=== PATIENT | female | born 2000 | race Two or more races ===

== ENCOUNTER → 2024-09-11 | Outpatient (CLI) | payer MEDICAID, SELFPAY ==
--- NOTE | 2024-09-11 09:00 | XR_ITS ---
Examination: Wrist, right 3 views Technique: Wrist AP, oblique, lateral 3 views Date and time of exam: September 11, 2024 at 0904 hours INDICATIONS: Wrist pain 2 years FINDINGS: No fracture or dislocation Mild bony prominence of what appears to be the hamate IMPRESSION: Consider CT scan of the wrist follow-up to confirm bony prominence of the hamate
--- NOTE | 2024-09-11 09:00 | XR_ITS ---
Examination: Hand, right 3 views Technique: Hand AP, oblique, lateral 3 views Date and time of exam: September 11, 2024 0904 hours INDICATIONS: Right hand pain 2 years with bony outgrowth on the right wrist FINDINGS: Mild juxta-articular bone demineralization No fracture Mild bony prominence of what appears to be the hamate IMPRESSION: Mild bony prominence of the hamate
== END | disposition home or self-care (01) ==
PROVIDERS: Referring Provider Nurse Practitioner Gerontology; Visit Provider Nurse Practitioner Gerontology
DX: M89.8X4 Other specified disorders of bone, hand (principal); M25.531 Pain in right wrist
CPT/HCPCS: 73110; 73130

== ENCOUNTER 2024-12-14 14:00 | Outpatient (RCR) | payer MEDICAID, SELFPAY ==
--- NOTE | 2024-11-25 08:12 | PTNOTE_ITS ---
PT OP Initial Eval Patient Information Outpatient Physical Therapy Treatment Date: 11/25/24 Visit Reasons: RT HAND/WRIST POST OP Medical Diagnosis: D16.11 Treatment Dx #1: R hand pain Start of Care: 11/25/24 Date of Onset: 10/27/24 Smoking Status Smoking Status: Never smoker Initial Assessment Subjective: Pt is 24 yr old female right handed s/p R volar wrist soft tissue lesion excision sx last month. 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 PMH: none reported Imaging: Xrays of R wrist Pt goal: less pain and improved strength in order to RTW and grasp objects. Objective: R wrist AROM: Flexion: 45 deg Extension: 50 deg with scar pain Thumb AROM: Flexion: 50 deg Abduction: full Flexion: full TTP: moderate of incision scar Raji sergeant of officers strength: R: 40 lbs, L: 50 lbs Assessment: Pt presentation consistent with post op cyst excision with decreased sergeant of officers strength and sensitivity of the incision scar that is over 1st CMC joint of R thumb. Pt requires skilled therapy to meet goals and has good rehab potential. Eval followed by HEP printout. Short Term and [facility] Goals 1. Ind with HEP 2. Improved sergeant of officers strength on R to 50 lbs 3. Decreased TTP of scar from mod to min/none 4. Improved wrist AROM to full and painfree Treatment Plan ? 1. Manual therapy ? 2. Therex ? 3. Modalities as indicated, moist heat, ice, estim Frequency and Duration: 2x a week for 12 visits plus the evaluation Certification Dates: 11/25/24 to 02/22/25 Procedure Charges OP PT Eval Mod Complex 30 minutes: Yes
--- NOTE | 2024-12-02 11:19 | PT.ODAYNRPT ---
PT Outpatient Daily Note OP Daily Note Outpatient Physical Therapy Treatment Date: 12/02/24 Visit Reasons: RT HAND/WRIST POST OP Subjective: Pt reports R hand is doing ok, notices it is till sore around the thumb. Objective: Please see flow sheet for ther ex list. Assessment: Performed scar mobs, pt tolerated with minimal TTP. Plan: Assess response to treatment. Length of Time (minutes) of Treatment: 30 Minutes Procedure Charges Therapeutic Exercise 30 minutes: Yes
--- NOTE | 2024-12-07 14:49 | PT.ODAYNRPT ---
PT Outpatient Daily Note OP Daily Note Outpatient Physical Therapy Treatment Date: 12/07/24 Visit Reasons: RT HAND/WRIST POST OP Subjective: Pt reports improvement with Rt hand/wrist and is experiencing minimal pain to incision site. Objective: See F/S for therex performed Assessment: Improved tolerance w/ scar tissue mobes; minimal TTP. Increase in Rt wrist pain with ball squeezes which subsided with rest. 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 Plan: Continue with POC Length of Time (minutes) of Treatment: 30 Minutes Procedure Charges Therapeutic Exercise 30 minutes: Yes
--- NOTE | 2024-12-09 11:51 | PT.ODAYNRPT ---
PT Outpatient Daily Note OP Daily Note Outpatient Physical Therapy Treatment Date: 12/09/24 Visit Reasons: RT HAND/WRIST POST OP Subjective: Pt states she has noticed improvement with Rt hand/wrist and will be returning to work this evening. Objective: See F/S for therex performed Assessment: Progressed to wrist extension/flexion with 1lb dumbbell; good tolerance and no corrective cues required. Improved tolerance with scar mobs, decreased TTP. Plan: Continue with POC Length of Time (minutes) of Treatment: 30 Minutes Procedure Charges Therapeutic Exercise 30 minutes: Yes
--- NOTE | 2024-12-14 15:30 | PTNOTE_ITS ---
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 Pain with opening bottles and lifting things with that hand. Objective: See F/S for therex MT: STM incision scar x5' Assessment: Pt has less TTP of incision scar with manual therapy than last visit Plan: Continue per POC Length of Time (minutes) of Treatment: 30 Minutes Procedure Charges Therapeutic Exercise 30 minutes: Yes
== END 2024-12-15 23:59 | disposition home or self-care (01) ==
LOC: CPTX 14:00
PROVIDERS: PCP Nurse Practitioner Gerontology; Referring Provider Nurse Practitioner Gerontology; Visit Provider Nurse Practitioner Gerontology
DX: M79.641 Pain in right hand (principal); D16.11 Benign neoplasm of short bones of right upper limb; Z98.890 Other specified postprocedural states
CPT/HCPCS: 97110; 97162

== ENCOUNTER 2025-01-05 09:30 | Outpatient (RCR) | payer MEDICAID, SELFPAY ==
--- NOTE | 2024-12-17 10:11 | PT.ODAYNRPT ---
PT Outpatient Daily Note OP Daily Note Outpatient Physical Therapy Treatment Date: 12/17/24 Visit Reasons: RT hand post op Subjective: Pt reports improvement and less pain to Rt hand. Objective: See F/S for therex performed Assessment: Improved independence with therex, no corrective cues required. Less TTP to incision site with scare mobs. Plan: Continue with POC Length of Time (minutes) of Treatment: 30 Minutes Procedure Charges Therapeutic Exercise 30 minutes: Yes
--- NOTE | 2024-12-21 14:14 | PT.ODAYNRPT ---
PT Outpatient Daily Note OP Daily Note Outpatient Physical Therapy Treatment Date: 12/21/24 Visit Reasons: RT hand post op Subjective: Pt reports improvement and less pain to Rt hand but it gets sore with work duties Objective: See F/S for therex MT: STM incision scar x5' Assessment: Good progress with goals with less TTP to incision site with scar STM Plan: Continue with POC Length of Time (minutes) of Treatment: 30 Minutes Procedure Charges Therapeutic Exercise 30 minutes: Yes
--- NOTE | 2024-12-23 13:02 | PT.ODAYNRPT ---
PT Outpatient Daily Note OP Daily Note Outpatient Physical Therapy Treatment Date: 12/23/24 Visit Reasons: RT hand post op Subjective: Pt reports R hand is doing better, can do the majority of her tasks and ADLs with less difficulty. Objective: Please see flow sheet for ther ex list. Assessment: Added interventions completed with no complaints. Plan: Continue with pOC. Length of Time (minutes) of Treatment: 30 Minutes Procedure Charges Therapeutic Exercise 30 minutes: Yes
--- NOTE | 2024-12-28 09:00 | PT.ODAYNRPT ---
PT Outpatient Daily Note OP Daily Note Outpatient Physical Therapy Treatment Date: 12/28/24 Visit Reasons: RT hand post op Subjective: Pt reports R hand is doing better, can do work duties with less difficulty. 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 Cargo Handler strength is symmetrical B. Plan: Continue per POC Length of Time (minutes) of Treatment: 30 Minutes Procedure Charges Therapeutic Exercise 30 minutes: Yes
--- NOTE | 2024-12-30 13:07 | PT.ODAYNRPT ---
PT Outpatient Daily Note OP Daily Note Outpatient Physical Therapy Treatment Date: 12/30/24 Visit Reasons: RT hand post op Subjective: Pt reports R hand continues to improve. Objective: Please see flow sheet for ther ex list. Assessment: Pt presents in clinic with no pain allowing for intervention progression. Plan: Continue with pOC. Length of Time (minutes) of Treatment: 30 Minutes Procedure Charges Therapeutic Exercise 30 minutes: Yes
--- NOTE | 2025-01-05 11:15 | PTNOTE_ITS ---
PT OP Progress/Discharge Note Date of Service: 01/05/25 Progress Note/DC Note Progress Note/Discharge Note: DC Note Patient Information Visit Reasons: RT hand post op Service Continue Service or Discharge: Discharge Discharge Date: 01/05/25 Status Subjective: Pt reports R hand is doing better, can do work duties with less difficulty. She is ready to be done with therapy. 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 Assessment: Pt has attended the eval and 12/27 Rx sessions with very good progress to meet all goals. Pt has TTP of scar to meet that goal. Limo Driver strength stronger on R hand than the left and she has almost met the goal of 50 lbs. 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 Wrist AROM is full and painfree and she is independent with HEP to meet those goals. Plan: D/C with HEP Procedure Charges Therapeutic Exercise 30 minutes: Yes
== END 2025-01-15 23:59 | disposition home or self-care (01) ==
LOC: CPTX 09:30
PROVIDERS: PCP Nurse Practitioner Gerontology; Referring Provider Nurse Practitioner Gerontology; Visit Provider Nurse Practitioner Gerontology
DX: M79.641 Pain in right hand (principal); Z98.890 Other specified postprocedural states
CPT/HCPCS: 97110